=== PATIENT | male | born 1960 | race Caucasian/White ===

== ENCOUNTER 2023-04-01 12:15 | Emergency (ER) | payer BC ==
[2023-04-01] MEDS: Sodium Chloride 0.9% 10 ML Syringe FLUSH PRN (12:34)
[2023-04-01] MEDS: methylPREDNISolone Sodium Succinate 40 MG/1 ML SDV IVPUSH ONE (12:34)
[2023-04-01] MEDS: Sodium Chloride 0.9% 250 ML IV ONE (12:42)
[2023-04-01 12:48] LABS: BASOPHILS ABSOLUTE AUTO 0.02 K/uL (0.00-0.20); BASOPHILS PERCENT AUTO 0.3 % (0.0-2.0); EOSINOPHILS PERCENT AUTO 1.5 % (0.0-5.0); HEMATOCRIT 45.5 % (39.0-49.0); HEMOGLOBIN 15.8 g/dL (13.1-16.8); LYMPHOCYTES ABSOLUTE AUTO 2.95 K/uL (0.50-3.50); LYMPHOCYTES PERCENT AUTO 43.4 % (10.0-50.0); MEAN CORPUSCULAR HGB CONC 34.7 g/dL (31.7-36.0); MEAN CORPUSCULAR VOLUME 86.3 fL (84.0-98.0); MONOCYTES ABSOLUTE AUTO 0.58 K/uL (0.00-1.00); MONOCYTES PERCENT AUTO 8.5 % (2.0-14.0); NEUTROPHILS ABSOLUTE AUTO 3.14 K/uL (1.40-7.00); NEUTROPHILS PERCENT AUTO 46.3 % (45.0-80.0); PLATELET COUNT,PLT 175 K/uL (150-350); RED BLOOD CELL COUNT 5.27 M/uL (4.33-5.41); RED CELL DISTRIBUTION WIDTH 12.9 % (11.2-14.1); WHITE BLOOD CELL COUNT,WBC 6.8 K/uL (4.0-10.2)
[2023-04-01 13:03] LABS: ALBUMIN 4.1 g/dL (3.4-5.0); ANION GAP 11.2 meq/L (7-15); BILIRUBIN TOTAL 0.5 mg/dL (0.2-1.0); CALCIUM 9.2 mg/dL (8.5-10.1); CARBON DIOXIDE,CO2 27.8 mmol/L (21.0-32.0); CREATININE 1.17 mg/dL (0.51-1.17); EST CRCL DRUG DOSING (CG) 68.46 mL/min; POTASSIUM,K 3.7 mmol/L (3.5-5.1); PROTEIN TOTAL,TP 7.4 g/dL (6.4-8.2)
[2023-04-01 13:17] LABS: CREATINE KINASE,CK 111 U/L (26-308)
== END 2023-04-01 13:35 | disposition home or self-care (01) ==
LOC: LL.ED 12:15
DX: T63.441A Toxic effect of venom of bees, accidental (unintentional), initial encounter (principal); Z79.82 Long term (current) use of aspirin
CPT/HCPCS: 36415; 71045; 80053; 82550; 84484; 85025; 93005; 93010; 96374; 99284; 99285-25; J2920; J3490; J7030